=== PATIENT | male | born 1955 | race African-American/Black ===

== ENCOUNTER 2017-05-18 07:02 | Emergency (ER) | payer MEDICAID, OTHER ==
[~2017-05-18] VITALS: Ht 180.3 cm; Wt 80.0 kg
[2017-05-18] MEDS ORDERED: ONDANSETRON 4MG ODT PO ONE (07:15)
[2017-05-18] MEDS ORDERED: MORPHINE SULFATE 10 MG/ML CPJ SUBCUT ONE (07:15)
[2017-05-18] MEDS ORDERED: DIAZEPAM 5 MG TABLET PO ONE (07:15)
[2017-05-18 07:31] VITALS: BP 156/66
== END 2017-05-18 08:04 | disposition home or self-care (01) ==
LOC: ER 07:10
DX: G89.29 Other chronic pain (principal); M54.5 Low back pain; R03.0 Elevated blood-pressure reading, without diagnosis of hypertension; K21.9 Gastro-esophageal reflux disease without esophagitis; X50.0XXA Overexertion from strenuous movement or load, initial encounter; Y93.89 Activity, other specified; Y92.89 Other specified places as the place of occurrence of the external cause; Y99.8 Other external cause status
CPT/HCPCS: 96372; 99283; J2270; Q0162

== ENCOUNTER 2023-06-13 21:36 | Emergency (ER) | payer MEDICAID ==
[~2023-06-13] VITALS: Ht 180.3 cm; Wt 81.0 kg
[2023-06-13 21:43] VITALS: TEMP 98.2; O2SAT 100
[2023-06-13] MEDS ORDERED: NAPR-1176 MT (22:33)
[2023-06-13 22:45] VITALS: BP 161/85; PULSE 77; RESP 18
[2023-06-13] MEDS ORDERED: KETOROLAC 30MG/ML VIAL IM ONE (22:45)
== END 2023-06-13 23:31 | disposition home or self-care (01) ==
LOC: ER 21:36
DX: M25.551 Pain in right hip (principal)
CPT/HCPCS: 99283; 73502; 96372; J1885